=== PATIENT | female | born 1995 | race Caucasian/White ===

== ENCOUNTER 2019-11-25 21:03 | Emergency (ER) | payer BC, OTHER ==
[~2019-11-25] VITALS: Ht 170.2 cm; Wt 63.5 kg
[2019-11-25] MEDS ORDERED: ADDERALL 20 MG20 MG PO (21:12)
[2019-11-25] MEDS ORDERED: ALDACTONE50 MG PO (21:13)
[2019-11-25] MEDS ORDERED: SPIRONOLACTONE50 MG PO (21:14)
[2019-11-25 22:06] LABS: BE(vivo) 0.2 mmol/L (-2 to +3); HCO3 25.7 mmol/L (22.0-26.0); PCO2 VENOUS 44.6 mmHg (41.0-51.0); PO2 VENOUS 27.4 mmHg (35.0-45.0)
[2019-11-25 22:21] VITALS: BP 120/67
== END 2019-11-25 22:25 | disposition home or self-care (01) ==
LOC: ER 21:03
PROVIDERS: Emergency Medicine
DX: R51 Headache (principal); R41.0 Disorientation, unspecified; T58.8X1A Toxic effect of carbon monoxide from other source, accidental (unintentional), initial encounter; Z79.899 Other long term (current) drug therapy; Y92.89 Other specified places as the place of occurrence of the external cause